=== PATIENT | male | born 1985 | race Two or more races ===

== ENCOUNTER 2017-08-01 09:10 | Emergency (ER) | payer SELFPAY ==
[~2017-08-01] VITALS: Ht 165.1 cm; Wt 71.2 kg
[~2017-08-01 09:10] MED LIST: ASPIRIN81 MG ORAL; NKM; PROTONIX40 MG ORAL
[2017-08-01 09:23] VITALS: BP 128/84
--- NOTE | 2017-08-01 11:02 | Diagnostic Imaging Report ---
Indications: Head pressure x1 week, intermittent dizziness Technique: Spiral acquisitions obtained through the brain. Angled axial and coronal 5 x 5 mm slices were reconstructed. Total dose length product 1460.54 mGycm. CTDI vol(s) 70.38 mGy. Dose reduction achieved using automated exposure control Comparison: None. Findings: Mildly prominent, for age, bilateral frontal extra axial CSF spaces. No acute intracranial hemorrhage or edema. No mass effect or midline shift. Normal oliver-white differentiation. The sinuses are clear. The visualized orbits are unremarkable. The calvarium is intact. Impression: Negative for acute intracranial bleed or mass effect Mild bifrontal cortical volume loss The CT scanner at [facility] is accredited by the [employer] and the scans are performed using protocols designed to limit radiation exposure to as low as reasonably achievable to attain images of sufficient resolution adequate for diagnostic evaluation.
[2017-08-01] MEDS ORDERED: TYLENOL325 MG ORAL (11:12)
[2017-08-01] MEDS ORDERED: IBUPROFEN600 MG ORAL (11:43)
[2017-08-01 11:49] VITALS: BP_SYST 128; BP_SYST 143; BP_DIAS 84; BP_DIAS 94
--- NOTE | 2017-08-02 08:28 | Emergency Room Report ---
History of Present Illness General Chief Complaint: General Complaint Source: Patient, Family Member Present Illness HPI Patient is a 32 year old male who presented after increased headache gradual onset over the past 2 weeks. Headaches were described as bilateral near back of the head. He denies any recent trauma. 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 He denies fever or vomiting or neck stiffness. He denied diplopia or visual changes. Allergies: Coded Allergies: No Known Allergies (Unverified , 03/27/16) Patient History Past Medical History: see triage record Reviewed Nursing Documentation: PMH: Agreed, PSxH: Agreed Nursing Documentation-PMH Past Medical History: No Stated History Hx Cardiac Problems: No Hx Cancer: No Hx Gastrointestinal Problems: Yes - Herniorraphy 7 years ago Hx Neurological Problems: No Review of Systems All Other Systems: negative except mentioned in HPI Physical Exam Vital Signs Date Time Temp Pulse Resp B/P (MAP) Pulse Ox O2 Delivery O2 Flow Rate FiO2 08/01/17 09:14 98.1 89 18 130/86 98 Room Air 98.1 General Appearance: well appearing, no apparent distress, alert, GCS 15, non- toxic Head: normocephalic, atraumatic ENT: hearing grossly normal, normal voice Neck: full range of motion, supple Respiratory: no respiratory distress, speaking full sentences Cardiovascular #1: normal inspection, regular rate, rhythm, no edema Gastrointestinal: normal inspection, normal bowel sounds, non tender, soft Musculoskeletal: normal inspection, back normal, digits/nails normal, gait/ station normal, no calf tenderness Neurologic: normal inspection, alert, oriented x3, responsive, cerebellar normal, normal gait, other - disconjugate gaze Psychiatric: normal inspection, judgement/insight normal, mood/affect normal Skin: normal inspection, no rash Medical Decision Making Diagnostic Impression: Primary Impression: Cerebral atrophy, mild Additional Impression: Head ache ER Course Patient presented for headache. Differential diagnosis included but was not limited to meningitis, subarachnoid hemorhage, carbon monoxide poisoning, cva, head injury among others. Because of patients complexity imaging studies were ordered. CT of the head read by radiology showed greater than expected for age atrophy. This may be due to prior exposure to painting chemicals. Patient is stable for outpatient workup. Patient was given ibuprofen for headache. He was advised to follow up with neurology. Patient was advised to return for any concerns. Last Vital Signs Date Time Temp Pulse Resp B/P (MAP) Pulse Ox O2 Delivery O2 Flow Rate FiO2 08/01/17 11:49 97.9 86 18 128/84 98 Room Air 208.6 Status: improved Disposition: HOME, SELF-CARE Condition: Stable Scripts Ibuprofen* (MOTRIN*) 600 Mg Tablet 600 MG ORAL Q8H Y for For Pain, #30 TAB 0 Refills Prov: Jovan Johnson 08/01/17 Acetaminophen (Tylenol) 325 Mg Tablet 650 MG ORAL Q6H Y for Prn Pain/Headache/Temp > 101, #30 TAB 0 Refills Prov: Jovan Johnson 08/01/17 Patient Instructions: Cerebral Atrophy Jovan Johnson Aug 02, 2017 08:28
== END 2017-08-01 11:49 | disposition home or self-care (01) ==
LOC: EMR 09:35
DX: G31.9 Degenerative disease of nervous system, unspecified (principal); R51 Headache
CPT/HCPCS: 70450; 82962; 99284